=== PATIENT | female | born 1970 | race Caucasian/White ===

== ENCOUNTER 2017-03-11 12:44 | Emergency (ER) | payer OTHER, MEDICARE, MEDICAID ==
[~2017-03-11 12:44] MED LIST: CLAR10TA7 PO; IBUP-232 PO; IBUP800T23 PO; LANSO15 PO; LOVA20TA PO; METH500T3 PO; MOBI7.5T PO; TOPA15CA PO
[2017-03-11 13:04] VITALS: BP 128/84; PULSE 98; RESP 20; TEMP 98.9; O2SAT 94
[2017-03-11] MEDS ORDERED: PREV30CA11 PO (13:23)
[2017-03-11] MEDS ORDERED: TOPA50TA7 PO (13:23)
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
== END 2017-03-11 15:08 | disposition home or self-care (01) ==
LOC: PHEFT 12:44
DX: S69.91XA Unspecified injury of right wrist, hand and finger(s), initial encounter (principal); F17.210 Nicotine dependence, cigarettes, uncomplicated; V43.52XA Car driver injured in collision with other type car in traffic accident, initial encounter; Y93.89 Activity, other specified; Y92.410 Unspecified street and highway as the place of occurrence of the external cause
CPT/HCPCS: 73140; 99283

== ENCOUNTER 2017-09-13 06:45 | Emergency (ER) | payer MEDICARE, MEDICAID ==
[~2017-09-13] VITALS: Ht 157.5 cm; Wt 70.0 kg
[~2017-09-13 06:45] MED LIST changes: -CLAR10TA7 PO; -IBUP-232 PO; -IBUP800T23 PO; -LANSO15 PO; -LOVA20TA PO; -METH500T3 PO; -MOBI7.5T PO; +PREV30CA36 PO; -TOPA15CA PO; +TOPA50TA7 PO
[2017-09-13 06:52] VITALS: BP 127/88; PULSE 91; RESP 16; TEMP 98.4; O2SAT 92
[2017-09-13] MEDS ORDERED: SODIUM CHLOR 0.9% 1000 ML INJ 1,000 ML IV SCH (07:06)
[2017-09-13 07:09] VITALS: O2SAT 96
[2017-09-13] MEDS ORDERED: SODIUM CHLORIDE 0.9% FLUSH 10 ML FLUSH IV FLUSH PRN (07:15)
[2017-09-13] MEDS ORDERED: NALOXONE HCL 0.4 MG/ML AMP IV PUSH ONE (07:15)
[2017-09-13 07:29] LABS: AUTOMATED NEUTROPHIL # 4.3 TH/MM3 (1.8-7.7); BASOPHIL % 0.4 % (0.0-2.0); EOSINOPHIL # 0.1 TH/MM3 (0-0.4); EOSINOPHIL % 1.6 % (0.0-4.0); HEMOGLOBIN 12.9 GM/DL (11.6-15.3); LYMPH % 43.7 % (9.0-44.0); LYMPHOCYTE # 3.8 TH/MM3 (1.0-4.8); MEAN CELL VOLUME 94.8 FL (80.0-100.0); MEAN CORPUSCULAR HEMOGLOBIN 29.7 PG (27.0-34.0); MEAN CORPUSCULAR HGB CONC 31.4 % (32.0-36.0); MEAN PLATELET VOLUME 7.8 FL (7.0-11.0); MONO % 5.6 % (0.0-8.0); MONOCYTE # 0.5 TH/MM3 (0-0.9); NEUT % 48.7 % (16.0-70.0); PLATELET COUNT 162 TH/MM3 (150-450); RED BLOOD COUNT 4.32 MIL/MM3 (4.00-5.30); RED CELL DISTRIBUTION WIDTH 13.2 % (11.6-17.2); WHITE BLOOD COUNT 8.7 TH/MM3 (4.0-11.0)
[2017-09-13 07:37] LABS: CHLORIDE 104 MEQ/L (98-107); SODIUM (NA) 138 MEQ/L (136-145)
[2017-09-13 07:40] LABS: ALBUMIN 3.8 GM/DL (3.4-5.0); BICARBONATE 26.8 MEQ/L (21.0-32.0); CALCIUM 8.9 MG/DL (8.5-10.1); GLUCOSE,RANDOM 88 MG/DL (74-106)
[2017-09-13 07:41] LABS: BLOOD UREA NITROGEN 17 MG/DL (7-18)
[2017-09-13 07:42] LABS: INTERNATIONAL NORMALIZED RATIO 0.9 RATIO; PROTHROMBIN TIME - PATIENT 9.4 SEC (9.8-11.6)
[2017-09-13 07:43] LABS: ALT (GPT) 22 U/L (10-53); AST (GOT) 39 U/L (15-37); CREATININE 0.53 MG/DL (0.50-1.00); GLOMERULAR FILTRATION RATE 123 ML/MIN (>89)
[2017-09-13 07:45] LABS: TOTAL BILIRUBIN ADULT 0.4 MG/DL (0.2-1.0); TOTAL PROTEIN 7.7 GM/DL (6.4-8.2)
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
--- NOTE | 2017-09-13 07:45 | RADRPT ---
EXAM DATE/TIME: 09/13/2017 07:34 [facility] COMPARISON: No previous studies available for comparison. INDICATIONS : Altered mental status. RADIATION DOSE: 39.03 CTDIvol (mGy) MEDICAL HISTORY : Seizures. Gastroesophageal reflux disease. SURGICAL HISTORY : Appendectomy. Cholecystectomy. section. ENCOUNTER: Initial ACUITY: 1 day PAIN SCALE: 0/10 LOCATION: cranial TECHNIQUE: Multiple contiguous axial images were obtained of the head. Using automated exposure control and adj ustment of the mA and/or kV according to patient size, radiation dose was kept as low as reasonably a chievable to obtain optimal diagnostic quality images. DICOM format image data is available electro nically for review and comparison. FINDINGS: CEREBRUM: The ventricles are normal for age. No evidence of midline shift, mass lesion, hemorrhage or acute in farction. No extra-axial fluid collections are seen. POSTERIOR FOSSA: The cerebellum and brainstem are intact. The 4th ventricle is midline. The cerebellopontine angle i s unremarkable. EXTRACRANIAL: The visualized portion of the orbits is intact. SKULL: The calvaria is intact. No evidence of skull fracture. CONCLUSION: Normal examination for a patient of this age. Juliocesar Mcelroy MD on September 13, 2017 at 7:43 Board Certified Radiologist. This report was verified electronically.
[2017-09-13 07:46] LABS: ALKALINE PHOSPHATASE 93 U/L (45-117)
[2017-09-13 07:50] VITALS: BP 119/77; PULSE 75; RESP 18; O2SAT 96
--- NOTE | 2017-09-13 08:18 | RADRPT ---
EXAM DATE/TIME: 09/13/2017 07:18 [facility] COMPARISON: CHEST SINGLE AP, February 23, 2016, 12:06. INDICATIONS : Short of breath. MEDICAL HISTORY : unobtainable SURGICAL HISTORY : unobtainable ENCOUNTER: Subsequent ACUITY: 1 day PAIN SCORE: 0/10 LOCATION: Bilateral chest FINDINGS: Underinflated AP view of the chest demonstrates a normal-sized cardiac silhouette. There is interstit ial prominence in the lower lung zones, likely related to atelectasis. No pleural effusion, airspace consolidation, or pneumothorax is identified. The bones and soft tissues demonstrate no acute finding . CONCLUSION: Underinflation with atelectasis at the lung bases. No acute cardiopulmonary abnormality is identified given the technique. Lance Doherty MD on September 13, 2017 at 8:16 Board Certified Radiologist. This report was verified electronically.
--- NOTE | 2017-09-13 08:21 | RADRPT ---
EXAM DATE/TIME: 09/13/2017 07:18 [facility] COMPARISON: No previous studies available for comparison. INDICATIONS : Left hand pain, injury unknown. MEDICAL HISTORY : None. SURGICAL HISTORY : None. ENCOUNTER: Initial ACUITY: 1 day PAIN SCORE: 2/10 LOCATION: Left hand FINDINGS: Three views of the left hand demonstrate no fracture or dislocation. Mineralization is within normal limits and there is no significant arthropathy. No soft tissue abnormality or radiopaque foreign body is identified. A ring is present on the fourth digit. CONCLUSION: No acute left hand abnormality is identified. Lance Doherty MD on September 13, 2017 at 8:17 Board Certified Radiologist. This report was verified electronically.
--- NOTE | 2017-09-13 08:22 | RADRPT ---
EXAM DATE/TIME: 09/13/2017 07:18 [facility] COMPARISON: No previous studies available for comparison. INDICATIONS : Left wrist pain, injury unknown. MEDICAL HISTORY : None. SURGICAL HISTORY : None. ENCOUNTER: Initial ACUITY: 2 days PAIN SCORE: 2/10 LOCATION: Left wrist FINDINGS: Three views of the left wrist demonstrate no fracture or dislocation. Mineralization is within normal limits. There is no significant arthropathy. No soft tissue abnormality or radiopaque foreign body i s identified. CONCLUSION: No acute left wrist abnormality is identified. Lance Doherty MD on September 13, 2017 at 8:19 Board Certified Radiologist. This report was verified electronically.
[2017-09-13 08:29] LABS: BILIRUBIN, URINE NEG (NEG); GLUCOSE,URINE NEG (NEG); KETONE, URINE NEG (NEG); NITRITE,URINE NEG (NEG); URINE LEUKOCYTE ESTERASE TRACE (NEG)
[2017-09-13 08:30] LABS: BLOOD, URINE TRACE (NEG)
[2017-09-13 08:35] LABS: RBC, URINE 0-3 /hpf (0-3); URINE COLOR YELLOW (YELLW/STRAW); WHITE BLOOD CELL CLUMPS OCC
[2017-09-13] MEDS ORDERED: cefTRIAXone INJ 1,000 MG in SODIUM CHLORIDE 0.9% INJ 100 ML IV ONE (08:45)
[2017-09-13 08:49] VITALS: BP 136/92; PULSE 81; RESP 16; O2SAT 97
[2017-09-13] MEDS ORDERED: MACR100C2 PO (10:52)
--- NOTE | 2017-09-13 11:21 | EKG ---
Date Performed: 09/13/2017 Time Performed: 06:54:06 PTAGE: 47 years EKG: Sinus rhythm NORMAL ECG Compared to prior electrocardiogram, rate has decreased PREVIOUS TRACING : 10/24/2011 13.59 DOCTOR: Jason Solano Interpretating Date/Time 09/13/2017 11:19:28
== END 2017-09-13 11:00 | disposition home or self-care (01) ==
LOC: PHED 06:45
DX: R41.82 Altered mental status, unspecified (principal); N39.0 Urinary tract infection, site not specified; M79.642 Pain in left hand; B96.4 Proteus (mirabilis) (morganii) as the cause of diseases classified elsewhere; Z72.0 Tobacco use; Z79.899 Other long term (current) drug therapy
CPT/HCPCS: 70450; 71045; 73110; 73130; 80053; 80307; 81001; 82140; 85025; 85610; 85730; 87077; 87086; 87186; 87804; 93005; 96361; 96365; 96375; 99285; J0696; J2310; J7030

== ENCOUNTER → 2017-11-07 | Outpatient (CLI) | payer MEDICARE ==
[~2017-11-07] MED LIST changes: +MACR100C2 PO
--- NOTE | 2017-11-07 21:41 | MG ---
cc: Harish Parker MD EEG RECORD #[id number] A 47-year-old history of headache, seizure, migraine. Increased beta frequency is noted throughout the recording. Beta alpha background 10-40 microvolts. Good driving with photic stimulation. No abnormal response to hyperventilation, minimal buildup. Frequent eye movement artifact towards the end of the recording. Single lead EKG showed sinus rhythm. Good EEG variability and reactivity. INTERPRETATION: Excessive high-frequency noted throughout EEG, likely psychotropic medication related effect. Otherwise stable EEG. Clinical correlation. Harish Parker MD MG/rt , 09:19 PM , 09:41 PM
== END ==
LOC: HEEG 08:31
PROVIDERS: ATTEND Psychiatry & Neurology Neurology
DX: G44.1 Vascular headache, not elsewhere classified (principal)
CPT/HCPCS: 95819